=== PATIENT | female | born 1970 | race Two or more races ===

== ENCOUNTER 2018-12-14 08:34 | Emergency (ER) | payer OTHER ==
[~2018-12-14] VITALS: Ht 157.5 cm; Wt 97.5 kg
[2018-12-14 08:40] VITALS: BP 151/61
== END 2018-12-14 09:38 | disposition home or self-care (01) ==
LOC: ER 08:34
DX: H10.33 Unspecified acute conjunctivitis, bilateral (principal); Z88.0 Allergy status to penicillin

== ENCOUNTER 2024-06-03 14:23 | Emergency (ER) | payer OTHER ==
[~2024-06-03] VITALS: Ht 157.5 cm; Wt 101.7 kg
--- NOTE | 2024-06-03 15:08 | ED.PDOC ---
History of Present Illness HPI Comments Ms. Schroeder, a 53-year-old female with no significant medical or surgical history presented with a 4-day history of productive cough, chest congestion, with thick yellow phlegm, following contact with her son who had an upper respiratory tract infection. She visited urgent care, received antibiotics, and showed improvement. However, she continued to experience arthralgia, malaise, flu-like symptoms, chills, and a productive cough that progressed to a sore throat. She denied receiving flu and COVID immunizations for this season. She was accompanied by her who has similar symptoms as well. Chief Complaint: Flu like Time Seen by MD: 14:25 Primary Care Provider: NONE Reviewed Notes: Nurses Notes, Medications, Allergies Allergies: Coded Allergies: Penicillins (Verified Allergy, Unknown, 12/14/18) Uncoded Allergies: MILK (Allergy, Unknown, 06/03/24) Home Meds Active Scripts Azithromycin (Zithromax) 500 Mg Tab, 1 TAB PO DAILY for 5 Days, #5 TAB Prov:LUIS DIEGO RESIDENT 06/03/24 Information Source: Patient Mode of Arrival: Ambulatory Severity: Moderate Timing: Days Duration: Since onset Prehospital treatment: Treatment (Tried DayQuil NyQuil with partial relief.) Location: Bilateral chest Worsens At sleep, Improves With medications as mentioned above. 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 Hx Family History Family History: Reviewed,noncontributory to illness Social History Smoker: Non-Smoker Alcohol: Denies ETOH Use Drugs: Denies Drug Use (Lives at home with and kids.) Lives In: Home Constitutional: reports: chills, fatigue, malaise; denies: diaphoresis, fever, sweats, weakness, others EENTM: reports: nasal discharge, nose congestion; denies: blurred vision, double vision, ear bleeding, ear discharge, ear drainage, ear pain, ear ringing, eye pain, eye redness, hearing loss, mouth pain, mouth swelling, nose bleeding, nose pain, photophobia, tearing, throat pain, throat swelling, voice changes, others Respiratory: reports: cough, others (Congestion); denies: hemoptysis, orthopnea, SOB at rest, shortness of breath, SOB with excertion, stridor, wheezing Cardiovascular: denies: chest pain, dizzy spells, diaphoresis, Dyspnea on exertion, edema, irregular heart beat, left arm pain, lightheadedness, palp itations, PND, syncope, others Gastrointestinal: denies: abdomen distended, abdominal pain, blood streaked bowels, constipated, diarrhea, dysphagia, difficulty swallowing, hematemesis, melena, nausea, poor appetite, poor fluid intake, rectal bleeding, rectal pain, vomiting, others Genitourinary: denies: abnormal vagina bleeding, burning, dyspareunia, dysuria, flank pain, frequency, hematuria, incontinence, pain, , vagina discharge, urgency, others Neurological: denies: dizziness, fainting, headache, left sided numbness, left sided weakness, numbness, paresthesia, pre-existing deficit, right sided numbness, right sided weakness, seizure, speech problems, tingling, tremors, weakness, others Musculoskeletal: denies: back pain, gout, joint pain, joint swelling, muscle pain, muscle stiffness, neck pain, others Integumetry: denies: bruises, change in color, change in hair/nails, dryness, laceration, lesions, lumps, rash, wounds, others Allergic/Immunocompromised: denies: Difficulty Healing, Frequent Infections, Hives, Itching, others Hematologic/Lymphatic: denies: anemia, blood clots, easy bleeding, easy br uising, swollen glands, others Endocrine: denies: excessive hunger, excessive sweating, excessive thirst, excessive urination, flushing, intolerance to cold, intolerance to heat, unexplained weight gain, unexplained weight loss, others Psychiatric: denies: anxiety, bipolar disorder, depression, hopeless, panic disorder, schizophrenia, sleepless, suicidal, others Physical Exam General Appearance: Mild Distress HEENT: Normal ENT Inspection, Pharyngeal Erythema (Questionable), Sinuses (Unremarkable) Neck: Full Range of Motion, Non-Tender Respiratory: Normal Breath Sounds, Rales Cardiovascular: No Edema, No Murmur, No Gallop, Normal Peripheral Pulses, Regular Rate/Rhythm Breast Exam: Deferred Gastrointestinal: No Pulsatile Mass, Normal Bowel Sounds, Soft Genitalia: Deferred Pelvic: Deferred Rectal: Deferred Extremities: No calf tenderness, Normal range of motion, No pedal edema Neurologic: Alert, No Motor Deficits, Normal Affect, Normal Mood, No Sensory Deficits Cerebellar Function: Normal Reflexes: NOT DONE Skin: NOT DONE Lymphatic: NOT DONE Was a procedure done? Was a procedure done?: No EKG EKG : Comments Denies any cardiac history, denies chest pain Differential Dx Considerations may include: URI, bronchitis, viral respiratory illness including influenza and COVID, strep throat, community-acquired pneumonia, bacterial Zofran post to viral URI. X-Ray, Labs, Meds, VS Vital Signs Date Time Temp Pulse Resp B/P (MAP) Pulse Ox O2 Delivery O2 Flow Rate FiO2 06/03/24 17:55 98.1 64 15 141/58 (85) 97 98.1 06/03/24 17:55 15 97 Room Air* 0 21 06/03/24 14:45 18 94 Room Air* 0 21 06/03/24 14:36 98.6 77 18 149/72 (97) 94 98.6 Lab Test 06/03/24 17:30 Range/Units Influenza Type A Antigen Negative Negative Influenza Type B Antigen Negative Negative SARS-CoV-2 Antigen (Rapid) Negative NEGATIVE Group A Streptococcus Rapid Negative Current Medications Medications (Trade) Dose Ordered Sig/Stephanie Route Start Time Stop Time Status Last Admin Acetaminophen (Tylenol Tablet) 650 mg ONCE ONCE PO 06/03/24 17:00 06/03/24 17:07 DC 06/03/24 17:33 Images Reviewed?: Images reviewed and evaluated by me Time of 1ST Reevaluation: 18:40 Reevaluation 1ST: Unchanged (Unchanged symptoms, given 1 dose of Tylenol 650, all workup pending) Time of 2ND Reevaluation: 19:30 Reevaluation 2ND: Unchanged (Patient is breathing in the room air, hemodynamically stable, no desaturation, workup so far negative for COVID, influenza, and strep throat. Does not meet CURB 65 criteria. Likely atypical/walking pneumonia, with or without underlying viral URI. Five days of azithromycin prescribed outpatient mclaughlin plenty of fluid, as needed symptomatic treatment to continue. Discussed with Dr. Starkey. ) Consultation: PCP (Outpatient follow up establish care with PCP within 1 week of discharge.) Patient Education/Counseling: Diagnosis, Treatment, Prognosis, Need For Follow Up Family Education/Counseling: Diagnosis, Treatment, Prognosis, Need For Follow Up Sepsis Sepsis Reasesment Focused Exam Sepsis focused exam: focus exam completed (Negative), time: Departure 1 Departure Time of Disposition: 19:32 Impression: Primary Impression: CAP (community acquired pneumonia) Qualified Codes: J18.9 - Pneumonia, unspecified organism Additional Impressions: URI (upper respiratory infection) Qualified Codes: J06.9 - Acute upper respiratory infection, unspecified Bronchitis Disposition: HOME / SELF CARE / HOMELESS Condition: Stable e-Prescriptions Azithromycin (Zithromax) 500 Mg Tab 1 TAB PO DAILY for 5 Days, #5 TAB Prov: LUIS DIEGO RESIDENT 06/03/24 Discharged With: Spouse Critical Care Note Critical Care Time?: No Stability Stability form required: No Heart Score Heart Score: Heart Score Response (Comments) Value History N/A 0 EKG N/A 0 Age N/A 0 Risk Factors N/A 0 Troponin N/A 0 Total 0 LUIS DIEGO RESIDENT Jun 03, 2024 15:08
[2024-06-03] MEDS: ACETAMINOPHEN 325 MG TAB PO ONE (17:33)
[2024-06-03 17:55] VITALS: RESP 15; O2SAT 97
[2024-06-03 19:01] LABS: Rapid Strep A Screen-Throat Negative
[2024-06-03 19:02] LABS: Rapid Influenza A Negative (Negative); Rapid Influenza B Negative (Negative)
[2024-06-03 19:03] LABS: COVID19 ANTIGEN SOFIA FIA NEGATIVE (NEGATIVE)
[2024-06-03] MEDS ORDERED: AZIT500T PO (19:25)
[2024-06-03 19:45] VITALS: BP 129/74; PULSE 64; RESP 16; TEMP 99.1; O2SAT 94
[2024-06-04] MEDS ORDERED: AZIT500T PO (11:13)
== END 2024-06-03 19:45 | disposition home or self-care (01) ==
LOC: ER 14:23
DX: J18.9 Pneumonia, unspecified organism (principal); J06.9 Acute upper respiratory infection, unspecified; J40 Bronchitis, not specified as acute or chronic; Z20.822 Contact with and (suspected) exposure to COVID-19; Z88.0 Allergy status to penicillin
CPT/HCPCS: 36415; 87070; 87426; 87804; 87880